=== PATIENT | male | born 1975 | race Two or more races ===

== ENCOUNTER 2023-02-14 19:08 | Emergency (ER) | payer OTHER ==
[2023-02-14 19:38] VITALS: BP 134/96; PULSE 98; RESP 18; TEMP 97.8; BMI 42.5
[2023-02-14 19:55] LABS: HEMATOCRIT 44.9 % (35.4-49); HEMOGLOBIN 15.2 G/dL (11.7-16.9); MCH 29.7 pg (25.7-33.7); MCHC 33.8 g/dl (32.0-35.9); MEAN CELL VOLUME 87.9 fl (80-96); MEAN PLT VOLUME 10.5 fl (7.5-11.1); PLATELET COUNT 162.3 10^3/uL (134-434); RBC 5.11 10^6/uL (4.00-5.60); RDW 15.6 % (11.9-15.9); WHITE BLOOD COUNT 8.2 10^3/uL (4.0-10.8)
[2023-02-14 19:55] LABS: INR 1.15 (0.83-1.09); PROTHROMBIN TIME (PATIENT) 13.2 SEC (9.7-13.0)
[2023-02-14 20:01] LABS: ALBUMIN 3.8 g/dl (3.4-5.0); BILIRUBIN,TOTAL 0.8 mg/dl (0.2-1); POTASSIUM 3.8 mmol/L (3.5-5.1)
[2023-02-14 20:18] LABS: CALCIUM 9.1 mg/dl (8.5-10)
[2023-02-14 20:32] LABS: PLATELET ESTIMATE ADEQUATE
== END 2023-02-14 21:06 | disposition home or self-care (01) ==
LOC: FER 19:08
DX: R00.2 Palpitations (principal); Z86.79 Personal history of other diseases of the circulatory system
CPT/HCPCS: 0241U-QW; 36415; 80053; 84484; 85027; 85610; 93005; 99284-25